=== PATIENT | female | born 1970 | race Caucasian/White ===

== ENCOUNTER 2016-06-19 14:00 | Emergency (ER) | payer BC ==
[2016-06-19 14:12] VITALS: BP 138/87; PULSE 91; TEMP 98.1; BMI 24.9
[2016-06-19 15:24] LABS: URINE APPEARANCE CLEAR; URINE BILIRUBIN NEGATIVE (NEGATIVE); URINE COLOR STRAW; URINE GLUCOSE (UA) NEGATIVE (NEGATIVE); URINE KETONE NEGATIVE (NEGATIVE); URINE NITRITE NEGATIVE (NEGATIVE); URINE PROTEIN NEGATIVE (NEGATIVE); URINE UROBILINOGEN NEGATIVE E.U./dl (0.2-1.0)
--- NOTE | 2016-06-19 15:24 | PDOC ---
History of Present Illness - General Chief Complaint: Pain Stated Complaint: SENT BY PCP Time Seen by Provider: 06/19/16 14:47 History Source: Patient Exam Limitations: No Limitations - History of Present Illness Initial Comments: 06/19/16 17:06 HPI: This 45 year old who was sent to the ER with c/o abd pain and possible obstruction. She had developed constipation on Jun 10 where she had taken something for the constipation and severe abd pain developed. She called 911 where they transported her to [facility]. While she was under their care, she had a abd/pelvic CT with a significant finding of an obstruction. Pt remained there until Jun 14 and was discharged home. She still has not moved her bowels since then. Yesterday while home, she states she developed a fever, vomited after eating and called her PMD, Dr. Perkins who wanted her see sent her into ER for further evaluation of possible obstruction Chief Compliant: abd pain PMH: Multiple Sclerosis, Fibromyalgia, chronic opiate user prescribed by her PMD FH: Pt has not recently traveled outside the country in the last 30 days. Pt has not been in contact with people who have traveled out of the country, in contact with people who have been ill with fever, n, v, d. SH: smoking use: NONE illicit drug use: NONE alcohol use: NONE PSH: Home med use noted on JUN Allergies:nka PCP: Dr. Pressley Past History - Past Medical History Allergies/Adverse Reactions: Allergies Allergy/AdvReac Type Severity Reaction Status Date / Time No Known Allergies Allergy Verified 06/19/16 14:12 Home Medications: Ambulatory Orders Morphine *Sr* [Ms Contin -] 60 mg PO Q12H 06/19/16 Other medical history: MS, FIBROMIALGIA, ADHESIONS - Surgical History Abdominal Surgery: Yes (OBSTRUCTION) - Psycho/Social/Smoking Cessation Hx Suicidal Ideation: No Smoking History: Never smoked Hx Alcohol Use: No Drug/Substance Use Hx: No Review of Systems - Review of Systems Able to Perform ROS?: Yes Comments:: 06/19/16 17:54 General statement: "I have abd pain and my doctor sent me in for admssion" Hematology: neg history of bleeding/blood thinners Skin: Neg for lesions, rash, bruising. HEENT: Neg symptoms Respiratory: Neg SOB or difficulty in breathing Cardiac: Neg chest pain GI: + generalized abd pain, with n/v : Neg problems on voiding MS: Neg for joint pain/stiffness, no edema Neuro: Neg for LOC, weakness, Endocrine: Neg for excess thirst/hunger, cold/heat intolerance, excess sweating Allergies: Neg for allergies *Physical Exam - Vital Signs Last Vital Signs Temp Pulse Resp BP Pulse Ox 98.1 F 91 H 16 138/87 98 06/19/16 14:10 06/19/16 14:10 06/19/16 14:10 06/19/16 14:10 06/19/16 14:10 - Physical Exam Comments: 06/19/16 17:55 General Appearance: This well appearing 45 year old female walked into ER V/S: hemodynamically stable, afebrile Skin: WNL of pt's skin color, no signs of pallor, mottling, cyanosis Head:symmetrical Eyes: EOM's intact, PERRLA Ears: denies pain Nose: patent Throat: lips, teeth, gums, tongue, buccal mucos pink and moist Lungs: Chest symmetry equal. Cap refill <3 seconds. Lung sounds clear Cardiac: PMI at R 4MCL space, pos S1 and S2, regular rate. Abdomen: Soft, round, with mild generalized tender throughout abd. : Not observed Muscularskeletal: Gait steady, ambulated in to ER, no edema +PMS Neuro: AAOx3, cognitively intact, speech clear and appropriate. ED Treatment Course - LABORATORY CBC & Chemistry Diagram: 06/19/16 16:30 06/19/16 16:30 Medical Decision Making - Medical Decision Making 06/19/16 17:56 A/P 45 mary kay old with abd pain and r/o obstruction 1. labs, 2. abd /pelvic po iv contrast ct 3. ua 4. preg 5. ivf 06/19/16 18:43 Patient's labs evaluated and there are no elevated white count. Patient remains afebrile. No vomiting noted. She was able to take in the by mouth contrast without vomiting. CAT scan results reveal diverticulosis choline with suggestion of thickening of the mid and distal sigmoid colon wall without suggestive inflammation changes to suggest acute diverticulitis however colitis cannot be excluded. Further evaluation is needed. Tubular-like calcifications within proximal portion of the appendix that may be due to old oral contrast administration versus small appendicitis without evidence of acute diverticulitis. Mild dilatation of the central intrahepatic bile ducts without dilatation of the common bile duct. I explained to the patient that there has been no significant findings that suggest that I need to admit her or put her on IV antibiotics. She states that she had vomiting and a fever yesterday, however I do not have a white count above 4.3 normal she been febrile here. I also explained that she states she feels constipated however there does not appear to be any small bowel obstruction or large amounts of stool that are found in the colon. She states she has not gone in over 10 days. I explained that she may have difficulty due to her chronic opioid use. She states that she hasn't gone and she also has been having vomiting. At this time I explained I'm going to discharge her with a copy of the CAT scan results and have a conversation with her primary physician tomorrow morning to get a GI consult for further evaluation. I did speak with Dr. Chanell Taylor who is in favor of discharging her at this time. *DC/Admit/Observation/Transfer Diagnosis at time of Disposition: Abdominal pain, Diverticulosis - Discharge Dispostion Disposition: HOME Condition at time of disposition: Good Admit: No - Referrals Referrals: Efraín Pressley MD [Primary Care Provider] - - Patient Instructions Printed Discharge Instructions: DI for Diverticulosis, Arthur Diet Additional Instructions: Discharge instructions 1. Please follow up with your primary physician within the next few days and explain that you have been seen here in the Emergency Room for abdominal pain. There has been no significant finding for any obstruction nor has there been any infectious process found. A copy of your CAT scan results have been given to you to follow up with your primary physician 2. If you experience any worsening of symptoms, please return to the ER 3. Rest, stick with a bland diet and eat small frequent meals rather than large or spicy or heavy foods. You may want to consider taking probiotics as well. Avoid things such as seeds 4. Drink plenty of water
[2016-06-19 15:54] LABS: URINE BLOOD 1+ (NEGATIVE); URINE LEUK ESTERASE 2+ (NEGATIVE)
[2016-06-19 16:15] LABS: URINE BACTERIA RARE /hpf (NONE SEEN); URINE MUCUS RARE; URINE RBC 2 /hpf (0-3); URINE WBC 10 /hpf (3-5)
[2016-06-19 16:36] LABS: BASOPHIL 0.9 % (0-2.0); EOSINOPHIL 0.9 % (0-4.5); MCH 25.4 pg (25.7-33.7); MCHC 32.8 g/dl (32.0-36.0); MEAN CELL VOLUME 77.4 fl (80-96); MEAN PLT VOLUME 8.4 fl (7.5-11.1); NEUTROPHILS 55.1 % (42.8-82.8); PLATELET COUNT 162 K/MM3 (134-434); RDW 13.4 % (11.6-15.6); WHITE BLOOD COUNT 4.3 K/mm3 (4.0-10.0)
[2016-06-19 17:00] LABS: ALBUMIN 4.2 g/dl (3.4-5.0)
[2016-06-19 17:07] LABS: ALK PHOS 104 U/L (45-117); ANION GAP 9 (8-16); BILIRUBIN,TOTAL 0.1 mg/dL (0.2-1.0); CO2 28 mmol/L (21-32); CREATININE 0.8 mg/dL (0.55-1.02); GLUCOSE,RANDOM 79 mg/dL (74-106); SGOT/AST 39 U/L (15-37); SGPT/ALT 53 U/L (12-78); TOT PROT 7.8 g/dl (6.4-8.2)
== END 2016-06-19 19:25 | disposition home or self-care (01) ==
LOC: JER 14:00
DX: K57.90 Diverticulosis of intestine, part unspecified, without perforation or abscess without bleeding (principal)
CPT/HCPCS: 36415; 74177-TC; 80053; 81003; 81015; 83690; 84703; 85025; 99282-25; Q9967